=== PATIENT | male | born 1980 | race Caucasian/White ===

== ENCOUNTER 2021-01-30 13:20 | Emergency (ER) | payer OTHER ==
[~2021-01-30] VITALS: Ht 172.7 cm; Wt 106.3 kg
[2021-01-30 13:30] VITALS: BP 157/81
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
[2021-01-30] MEDS ORDERED: NEOMY/BACITR/POLYMYXIN OINT PACKET. TP ONE (15:30)
[2021-01-30] MEDS ORDERED: DIPH,PERTUSS(ACELL),TET VAC/PF 0.5 ML SYRINGE. VAX IM ONE (15:30)
== END 2021-01-30 15:56 | disposition home or self-care (01) ==
LOC: EEVIPCON 13:20 → ER 13:20
DX: S01.01XA Laceration without foreign body of scalp, initial encounter (principal); Y04.2XXA Assault by strike against or bumped into by another person, initial encounter; Y93.89 Activity, other specified; Y92.89 Other specified places as the place of occurrence of the external cause; Y99.8 Other external cause status
CPT/HCPCS: 12001; 70450; 70486; 71045; 72125; 90471; 90715; 99285-25